=== PATIENT | female | born 1935 | race Caucasian/White ===

== ENCOUNTER 2019-02-05 11:42 | Outpatient (CLI) | payer OTHER ==
[~2019-02-05 11:42] MED LIST: CEFADROXIL500 MG PO; PERCOCET 5/321 UDTAB PO; TOPROL XL25 MG
== END 2019-02-05 11:47 | disposition home or self-care (01) ==
LOC: RAD 501 11:42
DX: M25.562 Pain in left knee (principal)

== ENCOUNTER 2019-02-17 09:43 | Emergency (ER) | payer OTHER ==
[~2019-02-17] VITALS: Ht 152.4 cm; Wt 59.0 kg
== END 2019-02-17 11:48 | disposition home or self-care (01) ==
LOC: ER 09:43
DX: R07.89 Other chest pain (principal)

== ENCOUNTER 2019-05-31 07:47 | Outpatient (CLI) | payer OTHER | END 2019-05-31 07:51 | disposition home or self-care (01) | LOC: SONOGRAMA 07:47 | DX: R31.29 Other microscopic hematuria (principal) ==

== ENCOUNTER 2021-07-31 11:07 | Emergency (ER) | payer OTHER ==
[~2021-07-31] VITALS: Ht 154.9 cm; Wt 47.6 kg
== END 2021-07-31 16:55 | disposition home or self-care (01) ==
LOC: ER 11:07
DX: S01.521A Laceration with foreign body of lip, initial encounter (principal); S01.82XA Laceration with foreign body of other part of head, initial encounter; R53.81 Other malaise; G30.8 Other Alzheimer's disease; F02.80 Dementia in other diseases classified elsewhere, unspecified severity, without behavioral disturbance, psychotic disturbance, mood disturbance, and anxiety; W18.09XA Striking against other object with subsequent fall, initial encounter; Y93.89 Activity, other specified; Y92.830 Public park as the place of occurrence of the external cause; Y99.8 Other external cause status

== ENCOUNTER 2021-08-07 10:48 | Emergency (ER) | payer OTHER ==
[~2021-08-07] VITALS: Ht 152.4 cm; Wt 52.6 kg
== END 2021-08-07 12:19 | disposition home or self-care (01) ==
LOC: ER 10:48
DX: Z48.02 Encounter for removal of sutures (principal)